=== PATIENT | male | born 1965 | race African-American/Black ===

== ENCOUNTER 2017-12-11 09:34 | Outpatient (CLI) | payer MEDICARE, MEDICAID | END 2017-12-11 09:35 | disposition home or self-care (01) | LOC: BICMAMMO 09:34 | PROVIDERS: ATTEND Physician Assistant | DX: N62 Hypertrophy of breast (principal) | CPT/HCPCS: 77066; G0279 ==

== ENCOUNTER 2018-01-04 08:30 | Outpatient (CLI) | payer MEDICARE, MEDICAID ==
--- NOTE | 2018-01-04 12:41 | MRI ---
MRI BRAIN WITH AND WITHOUT CONTRAST: Technique: Multiplanar, multisequential imaging of the brain obtained. Post contrast images were obta ined after administration of 7 cc MultiHance IV. History: Increased prolactin levels. Gynecomastia. Assess for pituitary adenoma. Pituitary protocol w as followed with dynamic enhanced images through the pituitary in sagittal and coronal planes. FINDINGS: There is mild cortical volume loss involving the temporal lobes and perisylvian regions bilaterally. Mild volume loss in the frontal lobes. There is no restricted diffusion. No abnormal enhancement. Review of the pituitary sequences show a partially empty sella with pituitary flattened against the f jose of the sella turcica. No evidence of pituitary mass or pituitary adenoma identified. The intracranial internal carotid arteries, cerebral arteries, and basilar arteries exhibit flow void s. Dural venous sinuses are patent. Paranasal sinuses and mastoids are clear. IMPRESSION: 1. Mild cortical volume loss involving frontal and temporal lobes. 2. MRI brain is pituitary otherwise unremarkable. Partially empty sella with small pituitary gland se en in the floor of the sella turcica. POS: [facility]
== END 2018-01-04 08:31 | disposition home or self-care (01) ==
LOC: MRI 08:30
PROVIDERS: ATTEND Physician Assistant
DX: N62 Hypertrophy of breast (principal)
CPT/HCPCS: 70551